=== PATIENT | male | born 1945 | race Caucasian/White ===

== ENCOUNTER 2016-09-17 06:11 | Day surgery (SDC) | payer BC ==
[2016-09-13 12:36] LABS: HEMOGLOBIN 11.7 g/dL (13.6-17.8)
[2016-09-13 12:37] LABS: HEMATOCRIT 33.2 % (40.0-51.0)
[2016-09-13 12:44] LABS: BUN (BLOOD UREA NITROGEN) 13 MG/DL (6-23); CALCIUM, SERUM 8.6 MG/DL (8.5-10.4); CHLORIDE, SERUM 108 MMOL/L (96-112); CO2 (CARBON DIOXIDE) 29 MMOL/L (24-34); GFR AFRICAN AMERICAN 103 ML/MIN (>=60); GFR NON AFRICAN AMERICAN 89 ML/MIN (>=60); GLUCOSE, SERUM 90 MG/DL (60-99); POTASSIUM, SERUM 4.4 MMOL/L (3.5-5.3); SODIUM, SERUM 140 MMOL/L (135-148)
--- NOTE | ~2016-09-17 | OP ---
Record Of Operation [facility] [address] [place]. [address] NAME: JAIME JAFFE JR : 43 STATUS : [facility]#: [id number] AGE: 71 ADM/REG DATE : 09/17/16 MR#: [id number] REPORT SERV DATE: 09/17/16 DICTATED BY: NANY WEEKS DATE: 09/17/16 REPORT STATUS : Draft TRANSCRIBED BY: MODL DATE: 09/17/16 DATE OF PROCEDURE: 09/17/2016 PREOPERATIVE DIAGNOSIS: Bilateral gynecomastia. POSTOPERATIVE DIAGNOSIS: Bilateral gynecomastia. PROCEDURE: Bilateral gynecomastia surgery with direct excision. SURGEON: Nany Weeks MD. TRUCK BODY REPAIRER: Lupe. ANESTHESIA: General endotracheal anesthesia with 18 mL of 1% lidocaine with 1:100,000 epinephrine. ESTIMATED BLOOD LOSS: Less than 5 mL. IV FLUIDS: 1200 mL. SPECIMEN: Right breast and chest tissue totaling 10 g and left breast tissue totaling 9.2 g. COMPLICATIONS: None immediate. INDICATION FOR PROCEDURE: This is a 71-year-old male who is undergoing treatment for prostate cancer. Unfortunately, he developed significant gynecomastia with unrelenting pain and discomfort secondary to one of the treatment medications. For that reasoning, I have to titrate the dosage so low that his PSA actually started increasing. Therefore, I deemed it medically necessary for him to undergo removal of this gynecomastia tissue to hopefully alleviate his pain and discomfort and be able to resume optimal cancer treatment medication. With that in mind, the risks which include, but are not limited to bleeding, infection, asymmetry, need for revision of surgery, nipple ischemia or necrosis, etc., as well as the benefits and alternatives were discussed with him and his in the preoperative setting and informed consent was obtained. The patient agrees to undergo the procedure as outlined today. PROCEDURE NOTE: The patient was identified in the preoperative holding area where SCDs and compression stockings had already been placed as well as antibiotics initiated. The chest was marked appropriately and he was transported back to the operating room where he was placed supine on the operating room table with all dependent areas adequately padded. After smooth induction of general endotracheal anesthesia, the chest area was prepped and draped in standard surgical fashion. Approximately 18 mL of 1% lidocaine with 1:100,000 epinephrine was then inserted into the right and left chest areas to create a field block and provide vasoconstriction. This was allowed to set for a few minutes and an incision around the right areola from approximately the 11 o'clock to 4 o'clock position was made with a 15 blade scalpel down to the level of the underlying subcutaneous tissue. Dissection Record Of Operation [facility] [address] [place]. [address] NAME: JAIME JAFFE JR : 43 STATUS : [facility]#: [id number] AGE: 71 ADM/REG DATE : 09/17/16 MR#: [id number] REPORT SERV DATE: 09/17/16 DICTATED BY: NANY WEEKS DATE: 09/17/16 REPORT STATUS : Draft TRANSCRIBED BY: PORFIRIO DATE: 09/17/16 was then made with cautery until the white gynecomastia tissue was easily identified. Once it was identified, it was freed from the surrounding tissue by combination of blunt dissection and electrocautery. Eventually, the entire specimen from the right side was removed in entirety and passed off the table for pathological analysis. I then did multiple shaves of the underside of the right nipple-areolar complex to further eliminate the glandular tissue that was right underneath of it. After doing so, the site was irrigated and additional fatty tissue was removed from the medial and lateral aspect, so as to provide better contour to the overall appearance after placement of interrupted 3-0 Monocryl sutures deeply for contouring. The same procedure was undertaken on the patient's right side with the incision made with a 15 blade scalpel from the 1 o'clock to 8 o'clock position. This was extended down to level of the underlying subcutaneous tissue where electrocautery then was used. The gynecomastia tissue again was easily identified. Once it was identified, it was freed using combination of blunt dissection and electrocautery. After it was removed in its entirety, it was passed off the table for pathological analysis. There was one small foci just medial to that which was taken in addition and thought to possibly be another glandular area. 3-0 Monocryl sutures were then placed in the deep fatty tissue for contour and reapproximation, and the small amount of additional fatty tissue was taken medially and laterally to assist in the overall contour. The patient was then sat upright and contour were noted to be acceptable at this time. With that in mind, he was replaced flat and the sites were copiously irrigated with saline prior to closure. Closure was accomplished in the superficial aspect using interrupted 3-0 Monocryl in the deep dermal fashion followed by a running intracuticular 4-0 Monocryl suture. The sites were then cleansed. Dermabond and Telfa followed by a foam rubber 1-inch thick padding and Romel wraps for compression were placed. The patient tolerated the procedure well without any sign of complication. He was awakened, extubated, and transferred to postanesthesia care unit, where he was recovered without any sign of difficulty. Sponge and instrument counts were correct and verified at the end of the case. MELITA/PORFIRIO Nany Weeks MD / [id number] CC: MD FARHEEN Rodriguez CHARITY A
[~2016-09-17 06:11] MED LIST: AQUASOL E50 UNT/ML PO; ARIMIDEX1 PO; CASODEX 50 MG T50 MG PO; FISH-EPA1000 MG PO; GARLIC200 MG PO; HERBAL; MIRALAXPKT PO; MULTIVITAMI1 PO; PROTONIX PO; VITAMIN B-121000 MC1 SL; VITAMIN C100 M1 PO; VITAMIN C100 M2 PO; VITAMIN D400 UNI1 PO; VITAMIN E200 UNI4 PO; [UNRECOGNIZED DRUG - CODE] OR
== END 2016-09-17 16:36 | disposition home or self-care (01) ==
LOC: SDC 06:11
PROVIDERS: Plastic Surgery
PROC: 0HBV0ZZ Excision of Bilateral Breast, Open Approach (ICD-10-PCS; principal; 2016-09-17 07:45)
DX: N62 Hypertrophy of breast (principal); I10 Essential (primary) hypertension; D64.9 Anemia, unspecified; K44.9 Diaphragmatic hernia without obstruction or gangrene; C61 Malignant neoplasm of prostate; Z98.41 Cataract extraction status, right eye; Z98.42 Cataract extraction status, left eye; Z88.0 Allergy status to penicillin
CPT/HCPCS: 80048; 85014; 85018; 88305; 88341; 88342; 93005; J0461; J0690; J2250; J2405; J3010